=== PATIENT | male | born 1960 | race Caucasian/White ===

== ENCOUNTER 2019-05-01 09:55 | Observation (INO) ==
[2019-05-01] MEDS ORDERED: 0.9 % Sodium Chloride 1,000 ML IVC ONE (10:15)
--- NOTE | 2019-05-01 10:53 | Emergency Department Note ---
Disposition Clinical Impression: Hyponatremia Disposition: Admitted As Inpatient Condition: Fair Referrals: Rangel Coleman DO [Primary Care Provider] - Forms: ED Satisfaction Letter Time of Disposition: 11:39 Recheck wound or abnormal lab - General Chief Complaint: ED Recheck/Abnormal Lab/Rx Stated Complaint: reported low sodium Time Seen by Provider: 05/01/19 10:14 Source: patient Mode of arrival: private vehicle Limitations: no limitations Nursing Notes Reviewed: Yes Vital Signs Reviewed: Yes - History of Present Illness Pt Subjective Complaint: abnormal lab(s) Onset/Timin Initial Visit (ago): day(s) Initial Visit For: other (Initial visit PCP for sensation of weakness and some dizziness and some headache. She has history of hyponatremia and therefore had chemistries drawn) Returns Today for: other (Called by PCP secondary to low sodium level of 117 on lab work done yesterday) Symptoms Since Prior Visit: no new symptoms Context: called for abnormal lab result Treatments prior to arrival: other (None) - Related Data Home Medications Medication Instructions Recorded Confirmed Lactobacillus Combination No.8 1 cap PO DAILY 03/20/19 05/01/19 [Adult Probiotic] Lisinopril [Zestril] 40 mg PO DAILY 03/20/19 05/01/19 Allergies Allergy/AdvReac Type Severity Reaction Status Date / Time Penicillins [PCN] Allergy Anaphylaxis Verified 03/20/19 10:40 All systems ED: reviewed and negative except as stated. Constitutional: Denies: fever, chills Eyes: Denies: vision change ENT ED: Denies: ear pain, throat pain, congestion Cardiovascular: Denies: chest pain, palpitations Respiratory: Denies: cough, dyspnea Gastrointestinal: Reports: diarrhea (Patient has had some loose stools for the past few weeks). Denies: abdominal pain, nausea, vomiting Genitourinary: Denies: urgency, dysuria, frequency Musculoskeletal: Denies: back pain Integumentary: Denies: rash Neurological: Reports: headache, weakness. Denies: confusion Past Medical History - Past Medical History Attestation: Yes The following information was validated with the patient. Source: patient, old records reviewed, nursing notes reviewed Medical history: Reports: hyperlipidemia, hypertension Psychiatric history: Reports: anxiety, depression - Social History Smoking Status: Current every day smoker Smokeless Tobacco Status: No Alcohol use: Reports: heavy Drug use: Reports: none Physical Exam - General Limitations: no limitations General appearance: alert, in no apparent distress - Head Head exam: atraumatic, normocephalic, normal inspection - Eye Eye exam: Present: normal appearance, PERRL, EOMI. Absent: scleral icterus, conjunctival injection - ENT ENT exam: normal exam, normal oropharynx, mucous membranes moist, normal external ear exam - Neck Neck exam: Present: normal inspection, full ROM. Absent: thyromegaly - Chest Chest inspection: Present: normal inspection, symmetric chest wall rise. Absent: tenderness - Respiratory Respiratory exam: Present: normal lung sounds bilaterally. Absent: respiratory distress, wheezes - Cardiovascular Cardiovascular exam: Present: regular rate, normal rhythm, normal heart sounds - Abdominal Exam Abdominal exam: Present: soft, Non-Tender, normal bowel sounds - Extremities Exam Extremities exam: Present: normal inspection. Absent: pedal edema - Neurological Exam Neurological exam: Present: alert, oriented X3, CN II-XII intact, normal gait. Absent: motor sensory deficit - Psychiatric Psychiatric exam: Present: normal affect, normal mood - Skin Skin exam: Present: warm, dry. Absent: rash Course Course Narrative: Patient has history of hyponatremia. Has some symptoms consistent with hyponatremia and lab work done yesterday showed a sodium of 117. Mental status and neurologic examination are fine. Patient has been working a lot outside so I suspect that there is some element of dehydration as well. I am giving him a normal saline liter bolus while we wait for the chemistries to come back to confirm the hyponatremia. I counseled the patient that if his sodium is indeed that low he will need to be admitted for gradual replacement of that sodium. Disposition will be based on diagnostic results and reevaluation. - Reevaluation(s) Reevaluation #1: Repeat sodium was 120. Patient will need to be admitted. I discussed the case with Elgin Laws, the hospitalist. He accepted the patient for admission. Time: 11:38 - Consultations Consultation #1: Elgin Laws, hospitalist - I discussed the case with the hospitalist. He accepted the patient for admission. Time: 11:30 Vital Signs Temperature 97.3 F L 05/01/19 09:57 Pulse Rate 70 05/01/19 09:57 Respiratory Rate 18 05/01/19 09:57 Blood Pressure 138/85 05/01/19 09:57 O2 Sat by Pulse Oximetry 98 05/01/19 09:57 Temperature 97.3 F L 05/01/19 09:57 Pulse Rate 75 05/01/19 11:23 Respiratory Rate 18 05/01/19 11:23 Blood Pressure 127/83 05/01/19 11:23 O2 Sat by Pulse Oximetry 100 05/01/19 11:23 Oxygen Delivery Oxygen Delivery Room Air Recheck wound or abnormal lab - Medical Records Medical records reviewed: Yes I reviewed the patient's medical records. - Lab Data Lab results reviewed: Yes I reviewed the patient's lab results. Result diagrams: 05/01/19 10:34 Lab Results 05/01/19 Range/Units 10:34 Sodium 120 L* (136-145) mEq/L Potassium 4.7 (3.5-5.1) mEq/L Chloride 87 L (98-107) mEq/L Carbon Dioxide 26 (23-29) mEq/L BUN 6 (6-20) mg/dL Creatinine 0.80 (0.70-1.30) mg/dL Est GFR ( Amer) > 60 (> 60) Est GFR (Non-Af Amer) > 60 (> 60) BUN/Creatinine Ratio 8 (6-26) Glucose 117 H (70-105) mg/dL Calculated Osmolality 249 L (280-300) Calcium 9.6 (8.6-10.3) mg/dL
[2019-05-01 11:02] LABS: BUN/Creatinine Ratio 8 (6-26); Blood Urea Nitrogen 6 mg/dL (6-20); Calcium 9.6 mg/dL (8.6-10.3); Carbon Dioxide 26 mEq/L (23-29); Chloride 87 mEq/L (98-107); Glucose 117 mg/dL (70-105); Osmolality,Calculated 249 (280-300); Potassium 4.7 mEq/L (3.5-5.1); Sodium 120 mEq/L (136-145); eGFR For African Americans > 60 (> 60); eGFR For Non-African Americans > 60 (> 60)
[2019-05-01] MEDS ORDERED: Naloxone 0.4 MG/ML INJ IVP PRN (12:09)
[2019-05-01] MEDS ORDERED: Ondansetron ODT 4 MG TAB.RAPDIS SL PRN (12:09)
[2019-05-01] MEDS: 0.9 % Sodium Chloride 1,000 ML IVC SCH ×2 (13:17→19:59)
[2019-05-01 15:42] LABS: BUN/Creatinine Ratio 9 (6-26); Blood Urea Nitrogen 6 mg/dL (6-20); Calcium 9.1 mg/dL (8.6-10.3); Carbon Dioxide 23 mEq/L (23-29); Chloride 96 mEq/L (98-107); Glucose 61 mg/dL (70-105); Osmolality,Calculated 256 (280-300); Potassium 4.3 mEq/L (3.5-5.1); Sodium 125 mEq/L (136-145); eGFR For African Americans > 60 (> 60); eGFR For Non-African Americans > 60 (> 60)
--- NOTE | 2019-05-01 18:24 | Internal Med History&Physical ---
Date of Encounter: 05/02/19 Time of Encounter: 18:21 Assessment and Plan (1) Hyponatremia Current visit: Yes Status: Acute Pt with chronic hyponatremia with known heavy alcohol use and deemed to be slightly dehydrated upon evaluation in the ED. He was given 2L NS with improvement of sodium to 125. Will continue slow further rehydration. Slow alcohol cessation along with improved diet discussed. He is followed closely by PCP. Will plan for d/c home tomorrow if patient continues to do well. (2) Alcohol abuse Current visit: Yes Status: Chronic Acamprosate prescribed as outpatient and to begin upon discharge. (3) Alcoholic hepatitis Current visit: Yes Status: Chronic Near baseline. Pt will f/u with PCP. Alcohol cessation as advised. Qualifiers: Ascites presence: without ascites Qualified Code(s): K70.10 - Alcoholic hepatitis without ascites Internal Medicine - H&P: HPI Chief complaint: low sodium History of present illness: Mr. Flores is a 58 year old male with known chronic hyponatremia and alcoholic hepatitis that was contacted by PCP at 8:30 in the evening prior to presentation to go to ED for a sodium level of 117. His sodium has been running from approx 115-125 over the last 6-7 months. Pt was asymptomatic outside of a little fatigue and dizziness with headache. No nausea, vomiting, or seizures. He continues to drink alcohol daily. He was seen in ED and had a sodium of 120. He was deemed slightly dehydrated and given 2 L NS and admitted for ongoing evaluation and monitoring. Upon examination, pt was feeling well and without complaints. Past Med Surg Social Fam HX - Past Medical History Medical history: hyperlipidemia, hypertension Psychiatric history: anxiety, depression - Social History Smoking Status: Current every day smoker Smokeless Tobacco Status: No Alcohol use: heavy Drug use: none Internal Medicine - H&P: Meds Lactobacillus Combination No.8 [Adult Probiotic] 1 cap PO DAILY 03/20/19 [History] Lisinopril [Zestril] 40 mg PO DAILY 03/20/19 [History] Allergy/AdvReac Type Severity Reaction Status Date / Time Penicillins [PCN] Allergy Anaphylaxis Verified 03/20/19 10:40 All Systems PM: A 10-system review of systems was performed and is negative for pertinent findings except as documented above in the HPI. - Constitutional Vitals: Temp Pulse Resp BP Pulse Ox 97.6 F 62 16 124/71 98 05/01/19 16:09 05/01/19 16:09 05/01/19 16:09 05/01/19 16:09 05/01/19 16:09 Exam: Gen: Lying in bed, NAD HEENT: NC, AT Neck: Trachea midline, no mass Pulm: No respiratory distress, CTAB CV: Normal S1 and S2, RRR Abdomen: Soft, ND, NT Ext: No C/C/E Neuro: No appreciable motor/sensor deficits Skin: Warm and dry, no rash Psych: A&Ox3 Internal Med - H&P Results - Labs CBC & Chem 7: 05/02/19 04:23 Labs: BMP 05/01/19 05/01/19 10:34 15:13 Sodium 120 L* 125 L Potassium 4.7 4.3 Chloride 87 L 96 L Carbon Dioxide 26 23 BUN 6 6 Creatinine 0.80 0.68 L Glucose 117 H 61 L Calcium 9.6 9.1
[2019-05-02 05:18] LABS: BUN/Creatinine Ratio 10 (6-26); Blood Urea Nitrogen 7 mg/dL (6-20); Calcium 9.1 mg/dL (8.6-10.3); Carbon Dioxide 24 mEq/L (23-29); Chloride 96 mEq/L (98-107); Glucose 104 mg/dL (70-105); Osmolality,Calculated 260 (280-300); Potassium 4.2 mEq/L (3.5-5.1); Sodium 126 mEq/L (136-145); eGFR For African Americans > 60 (> 60); eGFR For Non-African Americans > 60 (> 60)
[2019-05-02 07:10] VITALS: BP 160/85
--- NOTE | 2019-05-02 08:23 | Discharge Summary ---
Orders not resulted at time of discharge: Pending orders 05/02/19 02:56 Osmolality,Urine [UCHEM] AM 0400 Sodium, Urine [UCHEM] AM 0400 Date of Encounter: 05/02/19 Time of Encounter: 08:20 - Discharge Diagnosis (1) Hyponatremia Priority: Primary Status: Chronic Comments: Hyponatremia secondary to hypovolemia and alcohol use improved with IV fluids from 117 to 126, which is near patient's baseline. Patient will be discharged home with instructions to wean off alcohol and improve diet. He will f/u with PCP for further monitoring. (2) Alcohol abuse Priority: Secondary Status: Chronic Comments: Cessation strongly advised. He will be acamprosate as prescribed by PCP within next week (3) Alcoholic hepatitis Priority: Secondary Status: Chronic Comments: Stable. Alcohol cessation as advised. Qualifiers: Ascites presence: without ascites Qualified Code(s): K70.10 - Alcoholic hepatitis without ascites Hospital course: Mr. Flores is a 58 year old male with known alcohol abuse and chronic hyponatremia who was directed to ED by PCP for a sodium of 117. Pt was administered IV fluids with improvement of sodium to 126 on the following day. He was asymptomatic, ambulating independently, and tolerating a regular diet. He was advised to taper off of alcohol and begin acamprosate as prescribed by PCP. Improved diet discussed as well. He will contact PCP in next week for further monitoring of sodium level. Discharge discussed with: patient - Time Spent with Patient Total time spent providing and/or coordinating discharge services: Time spent: Less than 30 minutes - Discharge Medications Prescriptions: Continued Lisinopril [Zestril] 40 mg PO DAILY Lactobacillus Combination No.8 [Adult Probiotic] 1 cap PO DAILY Home Medications: Lactobacillus Combination No.8 [Adult Probiotic] 1 cap PO DAILY 03/20/19 [History] Lisinopril [Zestril] 40 mg PO DAILY 03/20/19 [History] Allergies/Adverse Reactions: Allergy/AdvReac Type Severity Reaction Status Date / Time Penicillins [PCN] Allergy Anaphylaxis Verified 03/20/19 10:40 Date of admission: 05/01/19 11:52 Primary care physician: Rangel Coleman DO Consults: 05/01/19 12:59 Consult to Nutrition [CONS] Routine Comment: Consulting Provider: NUTRITION Reason for Dietary Consult: MST Score Discharging clinician: Elgin Laws Anticipated date of discharge: 05/02/19 - Constitutional Vitals: Temp Pulse Resp BP Pulse Ox 97.8 F 58 17 160/85 100 05/02/19 07:09 05/02/19 07:09 05/02/19 07:09 05/02/19 07:09 05/02/19 07:09 Exam: Gen: Lying in bed, NAD HEENT: NC, AT Neck: Trachea midline, no mass Pulm: No respiratory distress, CTAB CV: Normal S1 and S2, RRR Abdomen: Soft, ND, NT Ext: No C/C/E Neuro: No appreciable motor/sensor deficits Skin: Warm and dry, no rash Psych: A&Ox3 - Patient Status Disposition: Home, Self-Care Condition: Good Functional capacity at discharge: independent ambulation Overall status at discharge: patient is back to baseline - Discharge Instructions Follow Up With: Rangel Coleman DO [Primary Care Provider] - 1 week - Diet and Activity Activity: increase activity as tolerated Diet: advance to your usual diet
[2019-05-02] MEDS ORDERED: Lactobacillus 1 EACH CAP.SPRINK PO SCH (09:00)
[2019-05-02] MEDS ORDERED: Lisinopril 20 MG TABLET PO SCH (09:00)
== END 2019-05-02 09:20 | disposition home or self-care (01) ==
LOC: EMEROOPIK 09:55 → INPPIK 09:55
PROVIDERS: ADMIT Internal Medicine; ATTEND Internal Medicine